=== PATIENT | male | born 1960 | race Caucasian/White ===

== ENCOUNTER 2020-03-29 12:37 | Outpatient (REF) | payer MEDICAID, SELFPAY | END 2020-03-29 12:38 | disposition home or self-care (01) | LOC: HO.LAB 12:37 | PROVIDERS: Visit Provider Internal Medicine | DX: Z20.828 Contact with and (suspected) exposure to other viral communicable diseases (principal) | CPT/HCPCS: C9803; U0003 ==

== ENCOUNTER → 2021-01-22 10:12 | Outpatient (BNVA) | payer MEDICAID, SELFPAY | PROVIDERS: PCP General Practice; Referring Provider General Practice; Visit Provider Nurse Practitioner Family | DX: K58.2 Mixed irritable bowel syndrome (principal); R19.7 Diarrhea, unspecified; K21.9 Gastro-esophageal reflux disease without esophagitis | CPT/HCPCS: 99202 ==

== ENCOUNTER → 2021-04-05 09:51 | Outpatient (BNVA) | payer MEDICAID, SELFPAY | PROVIDERS: PCP General Practice; Referring Provider General Practice; Visit Provider Nurse Practitioner Family | DX: Z12.11 Encounter for screening for malignant neoplasm of colon (principal); K58.2 Mixed irritable bowel syndrome; K21.9 Gastro-esophageal reflux disease without esophagitis; R19.7 Diarrhea, unspecified | CPT/HCPCS: 99212 ==

== ENCOUNTER → 2021-07-02 08:00 | Day surgery (SDC) | payer MEDICAID, SELFPAY ==
--- NOTE | 2021-04-29 11:51 | P.CONAN_ITS ---
HPI - Anesthesia Eval Consult details Narrative: 60yo M for Colonoscopy [facility] Past Medical History Medical History (Updated 01/22/21 @ 10:35 by DANY Ortiz) Depressive disorder Elevated cholesterol Overweight Smoker Stable angina Vitamin D deficiency Surgical History Surgical History (Updated 04/05/21 @ 10:10 by Zhane Ernandez) History of surgery of head History of surgery on right wrist Hx of hernia repair Social History Social History (Updated 04/05/21 @ 10:03 by Zhane Ernandez) Alcohol intake: never Patient Tobacco Use Status: Never used Tobacco Meds Allergies Allergy/AdvReac Type Severity Reaction Status Date / Time No Known Allergies Allergy Verified 04/05/21 09:56 Home Medications Medication Instructions Recorded Confirmed Last Taken Type atorvastatin 20 mg tablet 20 mg PO DAILY 01/22/21 Unknown History buspirone 10 mg tablet 10 mg PO BID 01/22/21 Unknown History cholecalciferol (vitamin D3) 50 50 mcg PO DAILY 01/22/21 Unknown History mcg (2,000 unit) capsule diclofenac sodium 1 % topical gel 2 g TOPICAL QID 01/22/21 Unknown History fluticasone propionate 50 1 spray INTRANASAL DAILY 01/22/21 Unknown History mcg/actuation nasal spray,suspension (Allergy Relief (fluticasone)) lidocaine 5 % topical patch 1 patch TOPICAL DAILY 01/22/21 Unknown History nabumetone 750 mg tablet 750 mg PO BID 01/22/21 Unknown History prazosin 1 mg capsule 1 mg PO BEDTIME 01/22/21 Unknown History propranolol 20 mg/5 mL (4 mg/mL) 20 mg PO BID 01/22/21 Unknown History oral solution salt moisturizing solution no1 spray INTRANASAL 01/22/21 Unknown History sertraline 25 mg tablet (Zoloft) 25 mg PO DAILY 01/22/21 Unknown History trazodone 100 mg tablet 100 mg PO BEDTIME PRN 01/22/21 Unknown History Exam Exam Date and Time: April 29, 2021 1151 Assessment and Plan Assessment Anesthesia Assessment: Chart Reviewed
--- NOTE | 2021-04-30 09:51 | PC.NURSE ---
Patient did not arrive for procedure. Called x3, no response or return call. Messages left
[2021-06-27 13:04] VITALS: BMI 32.4
== END ==
PROVIDERS: PCP General Practice; Visit Provider Internal Medicine Gastroenterology
DX: Z12.11 Encounter for screening for malignant neoplasm of colon (principal); Z53.8 Procedure and treatment not carried out for other reasons

== ENCOUNTER 2021-09-06 13:39 | Emergency (ER) | payer MEDICAID, SELFPAY ==
--- NOTE | ~2021-09-06 | XR_ITS ---
EXAMINATION: XR KNEE, LEFT CLINICAL INFORMATION: Pain COMPARISON: Previous x-ray July 2014 TECHNIQUE: Four views of the left knee. FINDINGS: Bones and soft tissues are normal. No fracture or joint effusion. Alignment is anatomic. Joint spaces are well maintained. No abnormal soft tissue calcification. XR/XR knee LT 3V IMPRESSION: Normal left knee.
[2021-09-06 13:43] VITALS: BP 116/75; PULSE 89; RESP 18; TEMP 36.6; O2SAT 98; BMI 31.9
--- NOTE | 2021-09-06 15:04 | ED_ITS ---
HPI - General Adult General Chief complaint: Back Pain/Injury Stated complaint: l knee and hip pain Time Seen by Provider: 09/06/21 14:54 Source: patient Mode of arrival: ambulatory Limitations: no limitations History of Present Illness HPI narrative: Patient is a 61 year old male presenting to the emergency department today with left lower back pain. Patient states that starting 3 days ago, he began to have left low back pain that radiates down his left leg. Patient states that he has been lifting weights more, including lifts. Patient denies any dizziness, lightheadedness, abdominal pain, nausea, vomiting, fever, chills, blurry vision, double vision, loss of vision, chest pain, difficulty breathing, shortness of breath, night sweats, pain with urination, increased urinary frequency, inc reased urinary urgency, blood in his urine or stool, syncope or a near syncopal episode, recent trauma or falls, bowel incontinence, bladder incontinence, bowel retention, bladder retention, or any other complaints at this time. Onset (ago): day(s) (3) Location: back Radiation: extremity (left leg) Severity: mild Severity scale (1-10): 3 Quality: dull Pain Consistency: constant Relieving factors: none Exacerbating factors: none Associated symptoms: denies other symptoms Treatments prior to arrival: none Related Data Home Medications Medication Instructions Recorded Confirmed atorvastatin 20 mg tablet 20 mg PO DAILY 01/22/21 buspirone 10 mg tablet 10 mg PO BID 01/22/21 cholecalciferol (vitamin D3) 50 50 mcg PO DAILY 01/22/21 mcg (2,000 unit) capsule diclofenac sodium 1 % topical gel 2 g TOPICAL QID 01/22/21 fluticasone propionate 50 1 spray INTRANASAL DAILY 01/22/21 mcg/actuation nasal spray,suspension (Allergy Relief (fluticasone)) lidocaine 5 % topical patch 1 patch TOPICAL DAILY 01/22/21 nabumetone 750 mg tablet 750 mg PO BID 01/22/21 prazosin 1 mg capsule 1 mg PO BEDTIME 01/22/21 propranolol 20 mg/5 mL (4 mg/mL) 20 mg PO BID 01/22/21 oral solution salt moisturizing solution no1 spray INTRANASAL 01/22/21 sertraline 25 mg tablet (Zoloft) 25 mg PO DAILY 01/22/21 trazodone 100 mg tablet 100 mg PO BEDTIME PRN 01/22/21 Previous Rx's Medication Instructions Recorded [id number] 1 cap PO QID #120 cap 04/05/21 24,000-76,000-120,000 unit capsule,delayed rel (Creon) methylcellulose (laxative) 500 mg 500 mg PO DAILY #30 tab 04/05/21 tablet (Citrucel) pantoprazole 40 mg tablet,delayed 40 mg PO DAILY #30 tab 04/05/21 release sennosides 8.6 mg tablet (Natural 8.6 mg PO BEDTIME #30 tab 04/05/21 Senna Laxative) polyethylene glycol 3350 17 238 g PO ONCE #238 g 05/27/21 gram/dose oral powder (Miralax) bisacodyl 5 mg tablet,delayed 10 mg PO ONCE 1 Days #2 tab 07/02/21 release (Dulcolax (bisacodyl)) cyclobenzaprine 10 mg tablet 10 mg PO TID PRN 7 Days #21 tab 09/06/21 Allergies Allergy/AdvReac Type Severity Reaction Status Date / Time No Known Allergies Allergy Verified 04/05/21 09:56 Review of Systems Constitutional: Constitutional: Reports no additional constitutional compl aints, Denies chills, Denies fever(s) and Denies night sweats Eyes: Eyes: Reports no additional eye complaints, Denies blurry vision, Denies change in vision, Denies diplopia, Denies eye discharge, Denies loss of vision and Denies eye pain ENT: Denies dizziness Cardiovascular: Cardiovascular: Reports no additional cardiovascular complaints, Denies chest pain, Denies lightheadedness, Denies Loss of Consciousness and Denies dyspnea Respiratory: Respiratory: Reports no additional respiratory complaints and Denies dyspnea Gastrointestinal: Gastrointestinal: Reports no additional gastrointestinal complaints, Denies abdominal pain, Denies melena, Denies hematochezia, Denies change in bowel habits and Denies change in stool character Genitourinary: Genitourinary: Reports no additional male genitourinary complaints, Denies hematuria, Denies oliguria, Denies difficulty urinating, Denies dysuria, Denies urinary frequency, Denies urinary hesitancy, Denies urinary incontinence and Denies urinary urgency Musculoskeletal: Musculoskeletal: Reports no additional musculoskeletal complaints, Denies numbness and Denies tingling Neurologic: Denies dizziness, Denies loss of vision, Denies numbness and Denies tingling Psychiatric: Psychiatric: Reports no additional psychiatric complaints Endocrine: Endocrine: Reports no additional endocrine complaints Hematologic/Lymphatic: Hematologic/Lymphatic: Reports no additional hematologic/lymphatic complaints Allergic/Immunologic: Allergic/Immunologic: Reports no additional allergic/immunologic complaints [facility] Past Medical History Attestation statement: The following information was validated with the patient. Source: old records reviewed Medical History Depressive disorder Elevated cholesterol Overweight Smoker Stable angina Vitamin D deficiency Surgical History History of surgery of head History of surgery on right wrist Hx of hernia repair Social History Social History Alcohol intake: never Patient Tobacco Use Status: Never used Tobacco Advance Directives: No Advance Directives Information Provided: No Physical Exam ED Vital Signs: Vital Signs - 24 hr 09/06/21 13:43 09/06/21 15:31 Temperature 98 F 98.3 F Pulse Rate 89 76 Respiratory Rate 18 16 Blood Pressure 116/75 115/68 Pulse Oximetry 98 96 BMI result Body Mass Index 31.9 Const General: cooperative, no acute distress, alert and awake Nutritional Appearance: well nourished Orientation/consciousness: patient oriented x3 Limitations: no limitations HENMT Head: Yes normal to inspection and Yes atraumatic Ears: hearing grossly normal bilaterally and external ears normal General nose exam: Normal external nose present, no nasal discharge noted and no epistaxis Face and sinus: Yes normal facial exam, No abrasion and No laceration Mouth: Normal oral and palatal mucosa present, no drooling and no muffled voice Eyes General: appearance normal, both eyes and all related structures Periorbital: periorbital findings normal Eyelids: Yes eyelids normal Conjunctivae: conjunctivae normal Pupils: Equal, round and reactive pupils present EOM: EOMs intact bilaterally Neck Neck: Yes normal visual inspection, Yes full ROM and Yes no lymphadenopathy Chest Chest palpation & inspection: normal inspection of the chest Resp Effort & Inspection: normal respiratory effort and able to speak in complete sentences Auscultation: clear to auscultation bilaterally Cardio Rate: regular rate Rhythm: regular rhythm GI Inspection: Yes normal to inspection General: Yes no CVA tenderness Back/Spine/Pelvis Back: no CVA tenderness Cervical Spine: normal cervical lordosis and cervical ROM normal Thoracic/Lumbar Spine: thoracic and lumbar spine normal to inspection and thoraco-lumbar ROM normal Pelvis: no pain with anterior-posterior compression Neuro General: patient oriented x3 and moves all extremities Cranial nerves: Yes Equal, round and reactive pupils present Cognition (Neuro): normal cognition Motor exam (neuro): 5/5 motor strength present throughout Sensory Exam: Normal double simultaneous stimulation for sensation Coordination: [id number] test normal Extrem General: Yes normal to inspection, Yes full ROM and Yes capillary refill normal Psych Appearance: grossly normal Mental Status: mental status grossly normal Affect: normal affect Attitude: cooperative Thought process: Normal thought process present Thought content: Normal thought content present Insight: Good insight present (Psych) Medical Decision Making MDM Narrative Medical decision making narrative: Patient is a 61 year old male presenting to the emergency department today with left low back pain. Patient's physical exam was unremarkable. I explained my physical exam findings to the patient. I answered all questions asked by the patient. Patient received IM Toradol and PO Flexeril which he stated helped his symptoms significantly. I stressed the importance of the patient taking his medication as prescribed. I stressed the importance of the patient following up with his primary care provider. I stressed the importance of the patient returning to the emergency department immediately if his symptoms were to worsen or if he were to develop any dizziness, shortness of breath, difficulty breathing, chest pain, blurry vision, loss of vision, nausea, vomiting, abdominal pain, fever, chills, back pain, or any other complaints. Patient verbalized agreement and understanding with this treatment plan and discharge. Differential Diagnosis Differential Diagnosis: sciatic nerve pain Medical Records Medical records reviewed: Yes I reviewed the patient's medical records. Discharge Plan Discharge Clinical Impression: Sciatica Patient Disposition: Home, Self-Care Instructions: Sciatica (ED), Lower Back Exercises (ED) Additional Instructions: Follow up with your primary care provider. Return to the emergency department immediately if your symptoms worsen or if you develop any dizziness, shortness of breath, difficulty breathing, chest pain, blurry vision, loss of vision, nausea, vomiting, abdominal pain, fever, chills, back pain, or any other complaints. Prescriptions: New cyclobenzaprine 10 mg tablet 10 mg PO TID PRN (Reason: muscle spasm) 7 Days Qty: 21 0RF No Action polyethylene glycol 3350 [Miralax] 17 gram/dose powder 238 g PO ONCE Qty: 238 0RF Rx Instructions: As directed by gastroenterology department at [facility] bisacodyl [Dulcolax (bisacodyl)] 5 mg tablet,delayed release (DR/EC) 10 mg PO ONCE 1 Days Qty: 2 0RF Rx Instructions: take 2 tabs at 8-9 pm night before colonoscopy cholecalciferol (vitamin D3) 50 mcg (2,000 unit) capsule 50 mcg PO DAILY 0RF salt moisturizing solution no1 Mist intranasal 0RF lidocaine 5 % adhesive patch,medicated 1 patch topical DAILY 0RF Rx Instructions: leave on most painful area for up to 12 hrs trazodone 100 mg tablet 100 mg PO BEDTIME PRN0RF buspirone 10 mg tablet 10 mg PO BID 0RF nabumetone 750 mg tablet 750 mg PO BID 0RF fluticasone propionate [Allergy Relief (fluticasone)] 50 mcg/actuation spray,suspension 1 spray intranasal DAILY 0RF Rx Instructions: administer into each nostril atorvastatin 20 mg tablet 20 mg PO DAILY 0RF diclofenac sodium 1 % gel 2 g topical QID 0RF Rx Instructions: apply to single elbow, wrist or hand; for hand includes palm/fingers/back of hand propranolol 20 mg/5 mL (4 mg/mL) solution 20 mg PO BID 0RF prazosin 1 mg capsule 1 mg PO BEDTIME 0RF sertraline [Zoloft] 25 mg tablet 25 mg PO DAILY 0RF sennosides [Natural Senna Laxative] 8.6 mg tablet 8.6 mg PO BEDTIME Qty: 30 2RF Citrucel 500 mg tablet 500 mg PO DAILY Qty: 30 2RF Rx Instructions: take it with full glass of water pantoprazole 40 mg tablet,delayed release (DR/EC) 40 mg PO DAILY Qty: 30 2RF Rx Instructions: take one tablet half an hour before breakfast Creon 24,000-76,000 -120,000 unit capsule,delayed release(DR/EC) 1 cap PO QID Qty: 120 2RF Rx Instructions: administer with meals and/or snacks Referrals: Catalina Tanner MD [Primary Care Provider] - Stand Alone Forms: Work/School Release Interventions: ED Discharge Assessment Last Done: 09/06/21 15:55 Discharge Date/Time: 09/06/21 15:58 Print Language: Yakut
[2021-09-06 15:31] VITALS: BP 115/68; PULSE 76; RESP 16; TEMP 36.8; O2SAT 96
[2021-09-06] MEDS: Cyclobenzaprine HCl 5 MG TABLET PO (15:49)
[2021-09-06] MEDS: Ketorolac Tromethamine 15 MG/ML VIAL IM (15:49)
== END 2021-09-06 15:58 | disposition home or self-care (01) ==
PROVIDERS: Emergency Provider Internal Medicine; PCP General Practice
DX: M54.42 Lumbago with sciatica, left side (principal); M25.562 Pain in left knee
CPT/HCPCS: 73562; 96372; 99283; 99284; J1885

== ENCOUNTER 2023-02-17 08:42 | Outpatient (REF) | payer MEDICAID, SELFPAY ==
--- NOTE | ~2023-02-17 | XR_ITS ---
EXAMINATION: XR KNEE, RIGHT XR KNEE, LEFT CLINICAL INFORMATION: Chronic bilateral knee pain worse on the left COMPARISON: None TECHNIQUE: Radiographs of Both Knee joints obtained in standing Lateral projection. FINDINGS: RIGHT KNEE: No fracture seen. There is no spaces narrowing . Alignment is anatomic. No joint effusion. No abnormal soft tissue calcifications. LEFT KNEE: No fracture seen. There is no spaces narrowing . Alignment is anatomic. No joint effusion. No abnormal soft tissue calcifications.. XR/XR knee RT 3V IMPRESSION: Normal knees bilaterally.
--- NOTE | ~2023-02-17 | XR_ITS ---
EXAMINATION: XR KNEE, RIGHT XR KNEE, LEFT CLINICAL INFORMATION: Chronic bilateral knee pain worse on the left COMPARISON: None TECHNIQUE: Radiographs of Both Knee joints obtained in standing Lateral projection. FINDINGS: RIGHT KNEE: No fracture seen. There is no spaces narrowing . Alignment is anatomic. No joint effusion. No abnormal soft tissue calcifications. LEFT KNEE: No fracture seen. There is no spaces narrowing . Alignment is anatomic. No joint effusion. No abnormal soft tissue calcifications.. XR/XR knee LT 3V IMPRESSION: Normal knees bilaterally.
[2023-02-17 11:23] LABS: MANUAL DIFF FLAG NO
[2023-02-17 11:32] LABS: Basophils Absolute Auto 0.1 X10*3/uL (0.0-0.2); Basophils Percent Auto 0.7 % (0-2); Eosinophils Absolute Auto 0.4 X10*3/uL (0.0-0.4); Eosinophils Percent Auto 3.8 % (0-4); Hematocrit 44.8 % (42.0-52.0); Hemoglobin 14.8 g/dl (14.0-18.0); Imm Gran Abs Auto 0.09 X10*3/uL (0.00-0.03); Imm Gran Pct Auto 0.9 % (0.0-0.4); Lymphocytes Percent Auto 20.2 % (20-40); Mean Corpuscular Hemoglobin 29.8 pg (27.0-33.0); Mean Corpuscular Volume 90.1 fL (80.0-98.0); Mean Platelet Volume 12.2 fL (9.4-12.4); Monocytes Absolute Auto 0.8 X10*3/uL (0.1-1.2); Neutrophils Absolute Auto 6.4 x10*3/uL (2.0-8.3); Neutrophils Percent Auto 66.4 % (45-73); Platelet Count 220 X10*3/uL (160-400); Red Blood Count 4.97 X10*6/uL (4.60-5.80); Red Cell Distribution Width 14.1 % (11.0-16.0); White Blood Count 9.7 X10*3/uL (4.8-10.8)
[2023-02-17 11:49] LABS: Alanine Aminotransferase 44 U/L (0-40); Albumin Level 4.2 g/dL (3.5-5.0); Alkaline Phosphatase 97 U/L (39-117); Anion Gap 13 (12-20); Aspartate Amino Transferase 28 U/L (5-37); Bilirubin Total 0.4 mg/dL (0.0-1.0); Blood Urea Nitrogen 13 mg/dL (9-16); Calcium 9.3 mg/dL (8.4-10.2); Carbon Dioxide 26 mmol/L (22-29); Chloride 104 mmol/L (96-108); Cholesterol 240 mg/dL (<200); Estimated Glomerular Filt Rate > 60; Glucose Random 140 mg/dL (60-115); HDL Cholesterol 38 mg/dL (>40); LDL Cholesterol Calculated 139 mg/dL (<100); Potassium 4.4 mmol/L (3.3-5.1); Sodium 139 mmol/L (135-145); Total Protein 7.4 g/dL (6.5-8.0); Triglycerides 316 mg/dL (<150)
[2023-02-17 12:13] LABS: TSH reflex Free T4 0.79 uIU/mL (0.32-4.0)
[2023-02-17 12:18] LABS: Folate 10.2 ng/mL (> or = 4.0); Vitamin B12 329 pg/mL (200-900)
[2023-02-17 12:24] LABS: Estimated Average Glucose 134 mg/dL; Hemoglobin A1c % 6.3 % (<6.0)
== END 2023-02-17 08:43 | disposition home or self-care (01) ==
LOC: HO.HHCL 08:42
PROVIDERS: Visit Provider General Practice
DX: M25.561 Pain in right knee (principal); M25.562 Pain in left knee; G89.29 Other chronic pain; E66.3 Overweight; R41.3 Other amnesia
CPT/HCPCS: 36415; 73562; 80053; 80061; 82607; 82746; 83036; 84443; 85025

== ENCOUNTER 2023-12-22 09:16 | Outpatient (REF) | payer MEDICAID, SELFPAY | END 2023-12-22 09:17 | disposition home or self-care (01) | LOC: HO.NEURO 09:16 | PROVIDERS: PCP General Practice; Visit Provider General Practice | DX: Z13.89 Encounter for screening for other disorder (principal) ==

== ENCOUNTER 2024-07-01 13:53 | Outpatient (REF) | payer MEDICAID, SELFPAY ==
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
--- OUTSIDE RECORDS SUMMARY | 2024-07-01 15:32 | XMS_ITS | Encounter Summary ---
Author Organization [employer] Address [address] [facility] [address] [place] [address] Care Team Providers Care Clipman Name Role Phone Catalina Tanner MD Primary Care Provider [phone] Reason for Visit * Reason Comments Pre-visit Planning SDOH will need to be completed in office. Encounter Details Date Type Department Care Team ([facility] st Contact Info) Description 06/24/2024 Patient Outreach [facility] [address] [place], [place] [phone] Catalina Tanner MD [address] [place] [address] Pre-visit Planning (SDOH will need to be completed in office. ) Social History Tobacco Use Types Packs/Day Years Used Date Smoking Tobacco: Former Cigarettes Smokeless Tobacco: Never Comments:1 cigarette per day Alcohol Use Standard [...] your housing situation today? I have roberto pedro 02/10/[address] you li [...] Orientation Straight 02/24/2022 10 :16 AM EDT documented as of this encounter Progress Notes * Nettie White - 06/24/2024 9:56 AM EST KEVIN Hernandez placed successful outbound call to patient for pre-visit planning. Patient name and confirmed. Patient confirms appt date and time, and has transportation arrangements. Biggest concern for appointment at this time is no concerns. Appropriate screenings completed in anticipation ofappointment. documented in this encounter Plan of Treatment Not on file documented as of this encounter Visit Diagnoses Not on filedocumented in this encounter Additional Health Concerns Assessment Noted Time PHQ-9 Depression Total Score: 8 06/01/19 24 9:00 AM EST documented as of this encounter Care Teams Clipman Relationship Specialty Start Date End Date Catalina Tanner MD [address] [place] [address] PCP - General Family Medicine 06/06/20 documented as of this encounter
--- OUTSIDE RECORDS SUMMARY | 2024-07-01 15:32 | XMS_ITS | Encounter Summary ---
Author Organization [employer] Address [address] [place] [address] Care Team Providers Care Belt Notcher Name Role Phone Catalina Tanner MD Primary Care Provider [phone] Reason for Visit * Reason Onset Date Comments Prior Authorization 03/18/2024 Encounter Details Date Type Department Care Team ([facility] Contact Info) Description 03/18/2024 Telephone [facility] MEDICINE [address] [place], [place] [phone] Catalina Tanner MD [address] [place], [place] [phone] Prior Authorization Social History Tobacco Use Types Packs/Day Years [...] AM EDT documented as of this encounter Miscellaneous Notes * Telephone Encounter - Savanna Bennett RN - 03/18/2024 10:39 AM EST RN returned call to pharmacy [phone] who reports a PA is needed for lexapro and sertraline dueto one medication being an SSRI and the other being an SNRI. Pharmacy reports the pt is due for medications on Thursday and pharmacy is closed on and Thursday d/t holiday. Pharmacy is requesting PA to be processed LYN. * Telephone Encounter - Sherri Rm - 03/18/2024 10:18 AM EST Tc from Pharmacy [facility] requesting a PA for medications Sertraline,Lexapro due to pharmacy being closed for upcoming holidays. documented in this encounter Plan of Treatment Not on file documented as of this encounter Visit Diagnoses Not on filedocumented in this encounter Additional Health Concerns Assessment Noted Time PHQ-9 Depression Total Score: 8 06/01/19 24 9:00 AM EST documented as of this encounter Care Teams Belt Notcher Relationship Specialty Start Date End Date Catalina Tanner MD [address] [place] [address] PCP - General Family Medicine 06/06/20 documented as of this encounter
--- OUTSIDE RECORDS SUMMARY | 2024-07-01 15:32 | XMS_ITS | Encounter Summary ---
Author Organization [employer] Address [address] [facility] [address]t [place] [address] Care Team Providers Care General Manager In Training Name Role Phone Catalina Tanner MD Primary Care Provider [phone] Encounter Details Date Type Department Care Team (Latest Contact Info) Description 07/01/2024 Travel Social History Tobacco Use Types Packs/Day Years [...] AM EDT documented as of this encounter Plan of Treatment Not on file documented as of this encounter Visit Diagnoses Not on filedocumented in this encounter Additional Health Concerns Assessment Noted Time PHQ-9 Depression Total Score: 8 06/01/19 24 9:00 AM EST documented as of this encounter Care Teams General Manager In Training Relationship Specialty Start Date End Date Catalina Tanner MD [address] [place] [address] PCP - General Family Medicine 06/06/20 documented as of this encounter
--- OUTSIDE RECORDS SUMMARY | 2024-07-01 15:32 | XMS_ITS | Encounter Summary ---
Author Organization [employer] Address [address] [facility] 7t [place] [address] Care Team Providers Care Instrument Repairer Steam Plant Name Role Phone Catalina Tanner MD Primary Care Provider [phone] Reason for Visit * Reason Comments Follow-up Encounter Details Date Type Department Care Team (Latest Contact Info) Description 07/01/2024 1:30 PM EST Office Visit [facility] MEDICINE 230 [place], [place] [phone] Catalina Tanner MD 230 [place], [place] [phone] Hypercholesterolemia (Primary Dx) Social History Tobacco Use Types Packs/Day Years [...] AM EDT documented as of this encounter Last Filed Vital Signs Vital Sign Reading [...] Mass Index 32.99 07/01/2024 1:20 PM EST documented in this encounter Plan of Treatment Scheduled Orders Name Type Priority Associated Diagnoses Orde r Schedule Comprehensive Metabolic Panel Lab Routine Hypercholesterolemia Expected: 07/01/2024 (Approximate), Expires: 07/01/2025 Lipid Panel, Standard Lab Routine Hypercholesterolemia Expected: 07/01/2024 (Approximate), Expires: 07/01/2025 Hepatitis C Antibody with Reflex to HCV, RNA, Quantitative, Real-Time PCR Lab Routine Hypercholesterolemia Expected: 07/01/2024, Expires: 07/01/2025 HIV-1/2 Antigen and Antibodies, Fourth Generation, with Reflexes Lab Routine Hypercholesterolemia Expected: 07/01/2024 (Approximate), Expires: 07/01/2025 CBC auto differential Lab Routine Hypercholesterolemia Expected: 07/01/2024 (Approximate), Expires: 07/01/2025 Hemoglobin A1c Lab Routine Hypercholesterolemia Expected: 07/01/2024 (Approximate), Expires: 07/01/2025 documented as of this encounter Visit Diagnoses Diagnosis Hypercholesterolemia- Primary Pure hypercholesterolemia documented in this encounter Additional Health Concerns Assessment Noted Time PHQ-9 Depression Total Score: 8 06/01/19 24 9:00 AM EST documented as of this encounter Care Teams Instrument Repairer Steam Plant Relationship Specialty Start Date End Date Catalina Tanner MD [address] [place] [address] PCP - General Family Medicine 06/06/20 documented as of this encounter
--- OUTSIDE RECORDS SUMMARY | 2024-07-01 15:32 | XMS_ITS | Encounter Summary ---
Author Organization [employer] Address [address] 7[address] [place] [address] Care Team Providers Care Tin Flopper Name Role Phone Catalina Tanner MD Primary Care Provider [phone] Reason for Visit * Reason Comments Med Refill Encounter Details Date Type Department Care Team ([facility] st Contact Info) Description 06/13/2024 Refill [facility] MEDICINE 230 [place] [address] Catalina Tanner MD 230 [place] [address] Social History Tobacco Use Types Packs/Day Years [...] documented as of this encounter Care Teams Tin Flopper Relationship Specialty Start Date End Date Catalina Tanner MD 230 [place] [address] PCP - General Family Medicine 06/06/20 documented as of this encounter
--- OUTSIDE RECORDS SUMMARY | 2024-07-01 15:32 | XMS_ITS | Encounter Summary ---
Author Organization [employer] Address [address] [place] [address] Care Team Providers Care Snow Groomer Name Role Phone Catalina Tanner MD Primary Care Provider [phone] Reason for Visit * Reason Comments Med Refill Encounter Details Date Type Department Care Team ([facility] st Contact Info) Description 06/08/2024 Refill [facility] MEDICINE 230 [place], [place] [phone] Catalina Tanner MD 230 [place] [address] PTSD (post-traumatic stress disorder) Social History Tobacco Use Types Packs/Day Years [...] as of this encounter Visit Diagnoses Diagnosis PTSD (post-traumatic stress disorder) Posttraumatic stress disorder documented in this encounter Additional Health Concerns Assessment Noted Time PHQ-9 Depression Total Score: 8 06/01/19 24 9:00 AM EST documented as of this encounter Care Teams Snow Groomer Relationship Specialty Start Date End Date Catalina Tanner MD 230 [place] [address] PCP - General Family Medicine 06/06/20 documented as of this encounter
--- OUTSIDE RECORDS SUMMARY | 2024-07-01 15:32 | XMS_ITS | Encounter Summary ---
Author Organization [employer] Address [address] 7[address] [place] [address] Care Team Providers Care Confidential Secretary Name Role Phone Catalina Tanner MD Primary Care Provider [phone] Encounter Details Date Type Department Care Team ([facility] Contact Info) Description 02/23/2023 Orders Only [facility] MEDICINE [address] [place] [address] Catalina Tanner MD [address] [place] [address] Social History Tobacco Use Types Packs/Day Years [...] Answer Date Recorded Patient Health Questionnaire-9 Score 13 11/20/2022 Housing Stability Answer Date Recorded What is your housing situation today? I have roberto pedro 02/17/[address] you li ve. Do you have problems with any of the following? None of the above 02/17/2023 Food Insecurity Answer Date Recorded Within the past 12 months, y ou worried that your food would run out before you got money to buy more: Never True 02/17/2023 Within the past 12 months,th e food you bought just didn't last and you didn't have enough money to get more: Never True Transportation Answer Date Recorded In the past 12 months, has l ack of transportation kept you from medical appts, meetings, work or from getting things needed for daily living? No 02/17/2023 Utilities Answer Date Recorded In the past 12 months, has t he electric, gas, oil or water company threatened to shut off services in your home? No 02/17/2023 Depression Answer Date Recorded Patient Health Questionnaire-2 Score 4 11/20/2022 Sex and Gender Information Value Date Recorded [...] Assessment Noted Time PHQ-9 Depression Total Score: 13 023 12:03 PM EDT documented as of this encounter Care Teams Confidential Secretary Relationship Specialty Start Date End Date Catalina Tanner MD [address] [place] [address] PCP - General Family Medicine 06/06/20 documented as of this encounter
--- OUTSIDE RECORDS SUMMARY | 2024-07-01 15:32 | XMS_ITS | Encounter Summary ---
Author Organization [employer] Address [address] 7[address] [place] [address] Care Team Providers Care Office Automation Clerk Name Role Phone Catalina Tanner MD Primary Care Provider [phone] Reason for Visit * Reason Comments Med Refill Encounter Details Date Type Department Care Team ([facility] st Contact Info) Description 05/12/2024 Refill [facility] MEDICINE 230 [place], [place] [phone] Catalina Tanner MD 230 [place] [address] PTSD (post-traumatic stress disorder) Social History Tobacco [...] documented as of this encounter Care Teams Office Automation Clerk Relationship Specialty Start Date End Date Catalina Tanner MD [address] [place] [address] PCP - General Family Medicine 06/06/20 documented as of this encounter
--- OUTSIDE RECORDS SUMMARY | 2024-07-01 15:32 | XMS_ITS | Encounter Summary ---
Author Organization [employer] Address [address] 7[address] [place] [address] Care Team Providers Care Commercial Horticulture Instructor Name Role Phone Catalina Tanner MD Primary Care Provider [phone] Reason for Visit * Reason Comments Med Refill Encounter Details Date Type Department Care Team ([facility] st Contact Info) Description 08/04/2023 Refill [facility] [address] [place] [address] Catalina Tanner MD 230 [place] [address] Social History Tobacco Use Types Packs/Day Years [...] Recorded Patient Health Questionnaire-2 Score 2 06/01/2023 Sex and Gender Information Value Date Recorded [...] documented as of this encounter Care Teams Commercial Horticulture Instructor Relationship Specialty Start Date End Date Catalina Tanner MD 230 [place] [address] PCP - General Family Medicine 06/06/20 documented as of this encounter
[2024-07-01 16:16] LABS: MANUAL DIFF FLAG NO
[2024-07-01 16:53] LABS: Alanine Aminotransferase 55 U/L (0-40); Albumin Level 4.3 g/dL (3.5-5.0); Alkaline Phosphatase 111 U/L (39-117); Anion Gap 10 (12-20); Aspartate Amino Transferase 35 U/L (5-37); Bilirubin Total 0.3 mg/dL (0.0-1.0); Blood Urea Nitrogen 15 mg/dL (9-16); Calcium 9.3 mg/dL (8.4-10.2); Carbon Dioxide 25 mmol/L (22-29); Chloride 110 mmol/L (96-108); Cholesterol 141 mg/dL (<200); Estimated Glomerular Filt Rate 55; Glucose Random 150 mg/dL (60-115); HDL Cholesterol 34 mg/dL (>40); LDL Cholesterol Calculated 50 mg/dL (<100); Potassium 3.8 mmol/L (3.3-5.1); Sodium 141 mmol/L (135-145); Total Protein 7.8 g/dL (6.5-8.0); Triglycerides 289 mg/dL (<150)
[2024-07-01 17:09] LABS: TSH reflex Free T4 0.64 uIU/mL (0.32-4.0)
[2024-07-01 17:14] LABS: Estimated Average Glucose 128 mg/dL; Hemoglobin A1c % 6.1 % (<6.0)
[2024-07-01 18:05] LABS: Basophils Absolute Auto 0.1 X10*3/uL (0.0-0.2); Basophils Percent Auto 0.7 % (0-2); Eosinophils Absolute Auto 0.4 X10*3/uL (0.0-0.4); Hematocrit 43.5 % (42.0-52.0); Hemoglobin 14.1 g/dl (14.0-18.0); Imm Gran Abs Auto 0.04 X10*3/uL (0.00-0.03); Imm Gran Pct Auto 0.5 % (0.0-0.4); Lymphocytes Percent Auto 23.7 % (20-40); Mean Corpuscular HGB Conc 32.4 g/dl (31.0-36.0); Mean Corpuscular Volume 92.6 fL (80.0-98.0); Monocytes Absolute Auto 0.5 X10*3/uL (0.1-1.2); Monocytes Percent Auto 6.4 % (2-11); Neutrophils Absolute Auto 5.3 x10*3/uL (2.0-8.3); Neutrophils Percent Auto 63.7 % (45-73); Platelet Count 290 X10*3/uL (160-400); Red Cell Distribution Width 14.3 % (11.0-16.0); White Blood Count 8.3 X10*3/uL (4.8-10.8)
[2024-07-02 08:39] LABS: HIV AB/AG Nonreactive (Nonreactive); HIV Num 1 0.06 S/CO (0.00-0.99); ~HepC Num1 0.16 S/CO (0.00-0.79); ~Hepatitis C Antibody Nonreactive (Nonreactive)
== END 2024-07-01 13:54 | disposition home or self-care (01) ==
LOC: HO.HHCL 13:53
PROVIDERS: Visit Provider General Practice
DX: E78.00 Pure hypercholesterolemia, unspecified (principal); E66.3 Overweight
CPT/HCPCS: 36415; 80053; 80061; 83036; 84443; 85025; 86803; 87389

== ENCOUNTER 2025-02-13 14:34 | Outpatient (REF) | payer MEDICARE, MEDICAID, SELFPAY ==
--- NOTE | ~2025-02-13 | XR_ITS ---
EXAMINATION: XR CHEST 2 VIEWS HISTORY: SOB, emphysema? COMPARISON: Comparison is made with the prior examination dated 09/09/2018. FINDINGS: PA and lateral views of the chest are submitted. The lungs are expanded and clear. There is no pleural effusion, pneumothorax, or pulmonary vascular congestion. The heart is normal in size. There is mild degenerative disc disease of the spine. XR/XR chest 2V IMPRESSION: No acute cardiopulmonary abnormality. Electronically signed by: James Crabtree MD 02/13/2025 02:56 PM EDT
--- OUTSIDE RECORDS SUMMARY | 2025-02-13 14:00 | XMS_ITS | Encounter Summary ---
Author Organization [employer] Address [address] [place] [address] 7t [place] [address] Care Team Providers Care Injection Moulding Machine Operator Name Role Phone Catalina Tanner MD Primary Care Provider [phone] Reason for Referral * Imaging (Routine) - Pending Review Specialty Diagnoses / Procedures Referred By Domi t Referred To Contact Cardiology Diagnoses SOB (shortness of breath) Procedures Transthoracic Echo (TTE) Complete Catalina Tanner MD 230 [place] [address] Phone: tel: fax: Referral ID Status Reason Start Date Expiration Date Visits Requested Visits Authorized [id number] Pending Review Perform Procedure 5 02/13/2026 1 1 Encounter Details Date Type Department Care Team ([facility] Contact Info) Description 02/13/2025 2:00 PM EDT Office Visit [facility] MEDICINE [address] [place] [address] Catalina Tanner MD [address] [place] [address] Stable angina (CMS/HCC) (Primary Dx); SOB (shortness of breath) Social History Tobacco Use Types Packs/Day Years [...] Date Recorded Patient Health Questionnaire-9 Score 8 02/13/2025 Patient Health Questionnaire-9 Score 8 02/13/2025 Last PHQ-9: Questionnaire Data Not on file 1 Housing Stability Answer Date Recorded What is your housing situation today? I have roberto pedro 02/13/[address] you li ve. Do you have problems with any of the following? None of the above 02/13/2025 Food Insecurity Answer Date Recorded Within the past 12 months, y ou worried that your food would run out before you got money to buy more: Never True 02/13/2025 Within the past 12 months,th e food you bought just didn't last and you didn't have enough money to get more: Never True Transportation Answer Date Recorded In the past 12 months, has l ack of transportation kept you from medical appts, meetings, work or from getting things needed for daily living? No 02/13/2025 Intimate Partner Violence Answer Date R ecorded Within the last year, have y ou been afraid of your partner or ex-partner? 2 02/13/2025 Within the last year, have y ou been humiliated or emotionally abused in other ways by your partner or ex-partner? 2 Within the last year, have y ou been kicked, hit, slapped, or otherwise physically hurt by your partner or ex-partner? 2 02/13/2025 Within the last year, have y ou been raped or forced to have any kind of sexual activity by your partner or ex-partner? 2 02/13/2025 Utilities Answer Date Recorded In the past 12 months, has t he electric, gas, oil or water company threatened to shut off services in your home? No 02/13/2025 Depression Answer Date Recorded Patient Health Questionnaire-2 Score 2 02/13/2025 Internet Access Answer Date Recorded Internet Access Q1 No 02/13/2025 Internet Access Q2 I do not want or need it 01/26 Sex and Gender Information Value Date Recorded Sex Assigned at Male 02/24/2022 10:16 AM EDT Legal Sex Male 10:16 AM EDT Gender Identity Male 02/24/2022 10:16 AM EDT Sexual Orientation Straight 02/24/2022 10 :16 AM EDT documented as of this encounter Last Filed Vital Signs Vital Sign Reading Time Taken Comments Blood Pressure 138/72 02/13/2025 1:44 PM EDT Pulse 70 02/13/2025 1:44 PM EDT Temperature 36.4 C (97.6 F) 02/13/2025 1:44 PM EDT Respiratory Rate 16 02/13/2025 1:44 PM EDT Oxygen Saturation 97% 02/13/2025 1:44 PM EDT Inhaled Oxygen Concentration - - Weight 98.4 kg (217 lb) 02/13/2025 1:44 PM EDT Height 172.7 cm (5' 8 ) 02/13/2025 1:44 PM EDT Body Mass Index 32.99 02/13/2025 1:44 PM EDT documented in this encounter Functional Status * Over the past 2 weeks, how often have you been bothered by any of the following problems? Question Answer Date of Assessment Author Patient Health Questionnaire -2 Score 2 02/13/2025 1:44 PM EDT Monique White MA * Little interest or pleasure in doing things Answer Date of Assessment Author Several days 02/13/2025 1:44 PM EDT Shawna White MA * Feeling down, depressed, or hopeless Answer Date of Assessment Author Several days 02/13/2025 1:44 PM EDT Shawna White MA * Trouble falling or staying asleep, or sleeping too much Answer Date of Assessment Author Several days 02/13/2025 1:44 PM EDT Shawna White MA * Feeling tired or having little energy Answer Date of Assessment Author Several days 02/13/2025 1:44 PM EDT Shawna White MA * Poor appetite or overeating Answer Date of Assessment Author Several days 02/13/2025 1:44 PM EDT Shawna White MA * Feeling bad about yourself - or that you are a failure or have let yourself or your family down Answer Date of Assessment Author Several days 02/13/2025 1:44 PM EDT Shawna White MA * Trouble concentrating on things, such as reading the newspaper or watching television Answer Date of Assessment Author Several days 02/13/2025 1:44 PM EDT Shawna White MA * Moving or speaking so slowly that other people could have noticed? Or the opposite - being so fidgety or restless that you have been moving around a lot more than usual. Answer Date of Assessment Author Several days 02/13/2025 1:44 PM EDT Shawna White MA * Thoughts that you would be better off or hurting yourself in some way Answer Date of Assessment Author Not at all 02/13/2025 1:44 PM FAITHT Shawna White MA * Patient Health Questionnaire-9 Score Answer Date of Assessment Author 8 02/13/2025 1:44 PM FAITHT Shawna White MA * How difficult have these problems made it for you to do your work, take care of things at home, or get along with other people? Answer Date of Assessment Author Somewhat difficult 02/13/2025 1:44 PM EDT Monique White MA * Over the last 2 weeks, how often have you been bothered by any of the following problems? Question Answer Date of Assessment Author Feeling nervous, anxious, or on edge 1 02/13/2025 1:45 PM EDT Monique White MA Not being able to stop or co ntrol worrying 1 02/13/2025 1:45 PM EDT Monique White MA Worrying too much about diff erent things 2 02/13/2025 1:45 PM EDT Monique White MA Trouble relaxing 2 02/13/2025 1:45 PM EDT Monique Ann MA Being so restless that it is hard to sit still 2 02/13/2025 1:45 PM EDT Monique White MA Becoming easily annoyed or irritable 3 02/13/2025 1:45 PM EDT Monique White MA Feeling afraid as if somethi ng awful might happen 3 02/13/2025 1:45 PM EDT Monique White MA JANENE-7 Total Score 14 02/13/2025 1:45 PM EDT Monique White MA documented as of this encounter Plan of Treatment Upcoming Encounters Date Type Department Care Team (Late st Contact Info) Description 05/12/2025 10:00 AM EST Office Visit [facility] [address] [place] [address] AddyEsther singer, OD 230 [place] [address] Scheduled Orders Name Type Priority Associated Diagnoses Order Schedule Transthoracic Echo (TTE) Complete Echocardiography Routine SOB (shortness of breath) Expected: 02/13/2025 (Approximate), Expires: 02/13/2027 documented as of this encounter Procedures Procedure Name Priority Date/Time Associated Diagnosis Comments XR CHEST 2 VIEWS Routine 02/13/2025 2:50 PM EDT SOB (shortness of breath) documented in this encounter Results * XR Chest 2 Views (02/13/2025 2:50 PM EDT) Anatomical Region Laterality Modality Chest Radiographic Camila ging 02/13/2025 2:50 PM EDT Narrative 02/13/2025 2:59 PM EDT [facility] [address] [place] [address] XRay Report Signed Patient: Francisco George MR# : [id number] : 1960 Acct:[id number] Age/Sex: 64 / M ADM Date: 02/13/25 Loc: .HHCX Attending Dr: Catalina Tanner MD Ordering Physician: Catalina Tanner Date of Service: 02/13/25 Procedure(s): XR chest 2V Accession Number(s): [id number] cc: Catalina Tanner Reason for Exam: SOB, ephysema? EXAMINATION: XR CHEST 2 VIEWS HISTORY: SOB, emphysema? COMPARISON: Comparison is made with the prior examination dated 09/09/2018. FINDINGS: PA and lateral views of the chest are submitted. The lungs are expanded and clear. There is no pleural effusion, pneumothorax, or pulmonary vascular congestion. The heart is normal in size. There is mild degenerative disc disease of the spine. XR/XR chest 2V IMPRESSION: No acute cardiopulmonary abnormality. Electronically signed by: James Crabtree MD 02/13/2025 02:56 PM EDT RP Dictated By: James Crabtree MD Signed By: <Electronically signed by James Crabtree MD in OV> 02/13/25 1456 DD/ 145 TD/TT: 02/13/251449 Film Critic: Procedure Note Donotuseinterpreter, Image - 02/13/[address] [address] XRay Report Signed Patient: Noelle George# : [id number] : 1960Acct:[id number] Age/Sex: 64 / MADM Date: 02/13/25 Loc: .HHCX Attending Dr: Catalina Tanner MD Ordering Physician: Catalina Tanner Date of Service: 02/13/25 Procedure(s): XR chest 2V Accession Number(s): [id number] cc: Catalina Tanner Reason for Exam: SOB, ephysema? EXAMINATION: XR CHEST 2 VIEWS HISTORY: SOB, emphysema? COMPARISON: Comparison is made with the prior examination dated 09/09/2018. FINDINGS: PA and lateral views of the chest are submitted. The lungs are expanded and clear. There is no pleural effusion, pneumothorax, or pulmonary vascular congestion. The heart is normal in size. There is mild degenerative disc disease of the spine. XR/XR chest 2V IMPRESSION: No acute cardiopulmonary abnormality. Electronically signed by: James Crabtree MD 02/13/2025 02:56 PM EDT RP Dictated By: James Crabtree MD Signed By: <Electronically signed by James Crabtree MD in OV> 02/13/25 1456 DD/ 1450 TD/TT: 02/13/251449 Film Critic: Catalina Tanner MD IMG XR PROCEDURES Edited Resul t - Final documented in this encounter Visit Diagnoses Diagnosis Stable angina (CMS/HCC)- Primary Other and unspecified angina pectoris SOB (shortness of breath) Shortness of breath documented in this encounter Additional Health Concerns Assessment Noted Time PHQ-9 Depression Total Score: 8 02/14/20 25 1:44 PM EDT documented as of this encounter Care Teams Injection Moulding Machine Operator Relationship Specialty Start Date End Date Catalina Tanner MD [address] [place] [address] PCP - General Family Medicine 06/06/20 documented as of this encounter
--- OUTSIDE RECORDS SUMMARY | 2025-02-13 18:23 | XMS_ITS | Encounter Summary ---
Author Organization [employer] Address [address] [facility] 7t [place] [address] Care Team Providers Care Housing Inspector Name Role Phone Catalina Tanner MD Primary Care Provider [phone] Encounter Details Date Type Department Care Team ([facility] st Contact Info) Description 09/28/2024 Orders Only [facility] MEDICINE [address] [place] [address] Catalina Tanner MD [address] [place] [address] PTSD (post-traumatic stress disorder) Social History Tobacco [...] Description 05/12/2025 10:00 AM EST Office Visit [facility] [address] [place] [address] Esther Daly, OD [address] [place] [address] documented as of this encounter Visit Diagnoses Diagnosis PTSD (post-traumatic stress disorder) Posttraumatic stress disorder documented in this encounter Additional Health Concerns Assessment Noted Time PHQ-9 Depression Total Score: 8 06/01/19 24 9:00 AM EST documented as of this encounter Care Teams Housing Inspector Relationship Specialty Start Date End Date Catalina Tanner MD [address] [place] [address] PCP - General Family Medicine 06/06/20 documented as of this encounter
--- OUTSIDE RECORDS SUMMARY | 2025-02-13 18:23 | XMS_ITS | Encounter Summary ---
Author Organization [employer] Address [address] [facility] 7t [place] [address] Care Team Providers Care Long Winder Tender Name Role Phone Catalina Tanner MD Primary Care Provider Reason for Visit * Reason Comments Med Refill Encounter Details Date Type Department Care Team ([facility] Contact Info) Description 06/13/2024 Refill [facility] MEDICINE [address] [place] [address] Catalina Tanner MD [address] [place] [address] Social History Tobacco Use Types Packs/Day Years [...] Description 05/12/2025 10:00 AM EST Office Visit [facility] [address] [place] [address] Esther Daly, OD [address] [place] [address] documented as of this encounter Visit Diagnoses Not on filedocumented in this encounter Additional Health Concerns Assessment Noted Time PHQ-9 Depression Total Score: 8 06/01/19 24 9:00 AM EST documented as of this encounter Care Teams Long Winder Tender Relationship Specialty Start Date End Date Catalina Tanner MD [address] [place] [address] PCP - General Family Medicine 06/06/20 documented as of this encounter
--- OUTSIDE RECORDS SUMMARY | 2025-02-13 18:23 | XMS_ITS | Encounter Summary ---
Author Organization [employer] Address [address] [facility] 7t [place] [address] Care Team Providers Care Supervising Law Enforcement Analyst Name Role Phone Catalina Tanner MD Primary Care Provider [phone] Reason for Visit * Reason Comments Med Refill Encounter Details Date Type Department Care Team ([facility] Contact Info) Description 05/12/2024 Refill [facility] MEDICINE [address] [place] [address] Catalina Tanner MD [address] [place] [address] PTSD (post-traumatic stress disorder) Social History Tobacco [...] Description 05/12/2025 10:00 AM EST Office Visit [facility] OPTOMETRY [address] [place], [place] [phone] Esther Daly OD [address] [place] [address] documented as of this encounter Visit Diagnoses Diagnosis PTSD (post-traumatic stress disorder) Posttraumatic stress disorder documented in this encounter Additional Health Concerns Assessment Noted Time PHQ-9 Depression Total Score: 8 06/01/19 24 9:00 AM EST documented as of this encounter Care Teams Supervising Law Enforcement Analyst Relationship Specialty Start Date End Date Catalina Tanner MD [address] [place], [place] [phone] PCP - General Family Medicine 06/06/20 documented as of this encounter
--- OUTSIDE RECORDS SUMMARY | 2025-02-13 18:23 | XMS_ITS | Encounter Summary ---
Author Organization [employer] Address [address] [facility] [address] [place] [address] Care Team Providers Care Operating Cost Clerk Name Role Phone Catalina Tanner MD Primary Care Provider [phone] Encounter Details Date Type Department Care Team ([facility] Contact Info) Description 02/23/2023 Orders Only [facility] MEDICINE [address] [place] [address] Catalina Tanner MD [address] [place] [address] Social History Tobacco Use Types Packs/Day Years [...] Description 05/12/2025 10:00 AM EST Office Visit [facility] OPTOMETRY [address] [place] [address] Addy, Esther, OD [address] [place] [address] documented as of this encounter Visit Diagnoses Not on filedocumented in this encounter Additional Health Concerns Assessment Noted Time PHQ-9 Depression Total Score: 13 023 12:03 PM EDT documented as of this encounter Care Teams Operating Cost Clerk Relationship Specialty Start Date End Date Catalina Tanner MD [address] [place] [address] PCP - General Family Medicine 06/06/20 documented as of this encounter
--- OUTSIDE RECORDS SUMMARY | 2025-02-13 18:23 | XMS_ITS | Encounter Summary ---
Author Organization [employer] Address [address] [facility] 7t [place] [address] Care Team Providers Care Take Out Waiter Name Role Phone Catalina Tanner MD Primary Care Provider [phone] Reason for Visit * Reason Comments Med Refill Encounter Details Date Type Department Care Team ([facility] Contact Info) Description 08/04/2023 Refill [facility] CHC MED & PEDS [address] [place] [address] Catalina Tanner MD [address] [place] [address] Social History Tobacco Use Types Packs/Day Years [...] Description 05/12/2025 10:00 AM EST Office Visit [facility] OPTOMETRY [address] [place] [address] Addy, Esther, OD [address] [place] [address] documented as of this encounter Visit Diagnoses Not on filedocumented in this encounter Additional Health Concerns Assessment Noted Time PHQ-9 Depression Total Score: 8 06/01/19 24 9:00 AM EST documented as of this encounter Care Teams Take Out Waiter Relationship Specialty Start Date End Date Catalina Tanner MD [address] [place] [address] PCP - General Family Medicine 06/06/20 documented as of this encounter
--- OUTSIDE RECORDS SUMMARY | 2025-02-13 18:23 | XMS_ITS | Encounter Summary ---
Author Organization [employer] Address [address] [facility] [address] [place] [address] Care Team Providers Care Sales Representative Business Courses Name Role Phone Catalina Tanner MD Primary Care Provider [phone] Reason for Visit * Reason Comments Med Refill Encounter Details Date Type Department Care Team ([facility] Contact Info) Description 11/01/2024 Refill [facility] CHC MED & PEDS [address] [place] [address] Catalina Tanner MD [address] [place] [address] PTSD (post-traumatic stress disorder) Social History Tobacco [...] Description 05/12/2025 10:00 AM EST Office Visit [facility] OPTOMETRY [address] [place], [place] [phone] Esther Daly, MARIELA [address] [place] [address] documented as of this encounter Visit Diagnoses Diagnosis PTSD (post-traumatic stress disorder) Posttraumatic stress disorder documented in this encounter Additional Health Concerns Assessment Noted Time PHQ-9 Depression Total Score: 8 06/01/19 24 9:00 AM EST documented as of this encounter Care Teams Sales Representative Business Courses Relationship Specialty Start Date End Date Catalina Tanner MD [address] [place], [place] [phone] PCP - General Family Medicine 06/06/20 documented as of this encounter
--- OUTSIDE RECORDS SUMMARY | 2025-02-13 18:23 | XMS_ITS | Encounter Summary ---
Author Organization [employer] Address [address] [facility] 7t [place] [address] Care Team Providers Care Front Desk Receptionist Name Role Phone Catalina Tanner MD Primary Care Provider [phone] Reason for Visit * Reason Onset Date Comments Chart Prep 02/10/2025 Encounter Details Date Type Department Care Team ([facility] Contact Info) Description 02/10/2025 Telephone [facility] MEDICINE [address] [place] [address] Catalina Tanner MD [address] [place] [address] Chart Prep Social History Tobacco Use Types Packs/Day Years [...] encounter Miscellaneous Notes * Telephone Encounter - Hina Reynolds [place] - 02/10/2025 1:12 PM EDT Chart Prep Labs: done Images: not applicable Referrals: not applicable Vaccines due: Covid, Flu, PCV20, Tdap, and RSV Screenings: not applicable Overdue care gaps: SBIRT, SDOH, PHQ-9, JANENE-7, and Disability screen documented in this encounter Plan of Treatment Upcoming Encounters Date Type Department Care Team (Late [facility] Contact Info) Description 05/12/2025 10:00 AM EST Office Visit [facility] OPTOMETRY [address] [place] [address] Esther Daly, OD [address] [place] [address] documented as of this encounter Visit Diagnoses Not on filedocumented in this encounter Additional Health Concerns Assessment Noted Time PHQ-9 Depression Total Score: 8 06/01/19 24 9:00 AM EST documented as of this encounter Care Teams Front Desk Receptionist Relationship Specialty Start Date End Date Catalina Tanner MD [address] [place] [address] PCP - General Family Medicine 06/06/20 documented as of this encounter
--- OUTSIDE RECORDS SUMMARY | 2025-02-13 18:23 | XMS_ITS | Encounter Summary ---
Author Organization [employer] Address [address] [facility] [address] [place] [address] Care Team Providers Care Machine Slat Basket Maker Name Role Phone Catalina Tanner MD Primary Care Provider [phone] Reason for Visit * Reason Comments Med Refill Encounter Details Date Type Department Care Team ([facility] Contact Info) Description 12/28/2024 Refill [facility] CHC MED & PEDS [address] [place] [address] Catalian Tanner MD [address] [place] [address] PTSD (post-traumatic stress disorder) Social History Tobacco [...] Description 05/12/2025 10:00 AM EST Office Visit [facility] OPTOMETRY [address] [place], [place] [phone] Esther Daly, MARIELA [address] [place] [address] documented as of this encounter Visit Diagnoses Diagnosis PTSD (post-traumatic stress disorder) Posttraumatic stress disorder documented in this encounter Additional Health Concerns Assessment Noted Time PHQ-9 Depression Total Score: 8 06/01/19 24 9:00 AM EST documented as of this encounter Care Teams Machine Slat Basket Maker Relationship Specialty Start Date End Date Catalina Tanner MD [address] [place], [place] [phone] PCP - General Family Medicine 06/06/20 documented as of this encounter
--- OUTSIDE RECORDS SUMMARY | 2025-02-13 18:23 | XMS_ITS | Encounter Summary ---
Author Organization [employer] Address [address] [facility] [address] [place] [address] Care Team Providers Care Group Teacher Name Role Phone Catalina Tanner MD Primary Care Provider [phone] Encounter Details Date Type Department Care Team (Latest Contact Info) Description 02/13/2025 Travel Social History Tobacco Use Types Packs/Day [...] AM EDT documented as of this encounter Functional Status * Over the [...] Assessment Author Several days 02/13/2025 1:44 PM FAITHT Shawna White [place] * Trouble falling or staying asleep, or sleeping too much Answer Date of Assessment Author Several days 02/13/2025 1:44 PM FAITHT Shawna White [place] * Feeling tired or having little energy Answer Date of Assessment Author Several days 02/13/2025 1:44 PM EDShawna Lainez [place] * Poor appetite or overeating Answer Date of Assessment Author Several days 02/13/2025 1:44 PM FAITHT Shawna White [place] * Feeling bad about [...] Assessment Author Several days 02/13/2025 1:44 PM Shawna Blue [place] * Thoughts that you would be better off or hurting yourself in some way Answer Date of Assessment Author Not at all 02/13/2025 1:44 PM Shawna Blue [place] * Patient Health Questionnaire-9 Score Answer Date of Assessment Author 8 02/13/2025 1:44 PM Shawna Blue [place] * How difficult have these problems made it for you to do your work, take care of things at home, or get along with other people? Answer Date of Assessment Author Somewhat difficult 02/13/2025 1:44 PM Monique Blue [place] * Over the last 2 weeks, how often have you been bothered by any of the following problems? Question Answer Date of Assessment Author Feeling nervous, anxious, or on edge 1 02/13/2025 1:45 PM Monique Blue [place] Not being able to stop or co ntrol worrying 1 02/13/2025 1:45 PM Moniuqe Blue [place] Worrying too much about diff erent things 2 02/13/2025 1:45 PM Monique Blue [place] Trouble relaxing 2 02/13/2025 1:45 PM [...] Description 05/12/2025 10:00 AM EST Office Visit [facility] OPTOMETRY [address] [place] [address] Esther Daly, OD [address] [place] [address] documented as of this encounter Visit Diagnoses Not on filedocumented in this encounter Additional Health Concerns Assessment Noted Time PHQ-9 Depression Total Score: 8 02/14/20 25 1:44 PM EDT documented as of this encounter Care Teams Group Teacher Relationship Specialty Start Date End Date Catalina Tanner MD [address] [place] [address] PCP - General Family Medicine 06/06/20 documented as of this encounter
--- OUTSIDE RECORDS SUMMARY | 2025-02-13 18:23 | XMS_ITS | Encounter Summary ---
Author Organization [employer] Address [address] [facility] [address] [place] [address] Care Team Providers Care Principal Web Developer Name Role Phone Catalina Tanner MD Primary Care Provider [phone] Reason for Visit * Reason Comments Med Refill Encounter Details Date Type Department Care Team ([facility] Contact Info) Description 07/08/2024 Refill [facility] CHC MED & PEDS [address] [place] [address] Catalina Tanner MD [address] [place] [address] Social History Tobacco Use Types Packs/Day Years [...] 10:00 AM EST Office Visit [facility] OPTOMETRY [address] [place] [address] Esther Daly, OD [address] [place] [address] documented as of this encounter Visit Diagnoses Not on filedocumented in this encounter Additional Health Concerns Assessment Noted Time PHQ-9 Depression Total Score: 8 06/01/19 24 9:00 AM EST documented as of this encounter Care Teams Principal Web Developer Relationship Specialty Start Date End Date Catalina Tanner MD [address] [place] [address] PCP - General Family Medicine 06/06/20 documented as of this encounter
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
--- OUTSIDE RECORDS SUMMARY | 2025-02-13 18:23 | XMS_ITS | Encounter Summary ---
Author Organization [employer] Address [address] [facility] [address] [place] [address] Care Team Providers Care Call Center Professional Name Role Phone Catalina Tanner MD Primary Care Provider [phone] Reason for Visit * Reason Onset Date Comments Prior Authorization 03/18/2024 Encounter Details Date Type Department Care Team ([facility] Contact Info) Description 03/18/2024 Telephone [facility] [address] [place] [address] Catalina Tanner MD [address] [place] [address] Prior Authorization Social History Tobacco Use Types [...] AM EST RN returned call to pharmacy [phone] who reports a PA is needed for lexapro and sertraline dueto one medication being an SSRI and the other being an SNRI. Pharmacy reports the pt is due for medications on Thursday and pharmacy is closed on and Thursday d/t holiday. Pharmacy is requesting PA to be processed LYN. * Telephone Encounter - Sherri Rm - 03/18/2024 10:18 AM EST Tc from Pharmacy [facility] requesting a PA for medications Sertraline,Lexapro due to pharmacy being closed for upcoming holidays. documented in this encounter Plan of Treatment Upcoming Encounters Date Type Department Care Team (Late st Contact Info) Description 05/12/2025 10:00 AM EST Office Visit [facility] [address] [place] [address] Esther Daly, OD [address] [place] [address] documented as of this encounter Visit Diagnoses Not on filedocumented in this encounter Additional Health Concerns Assessment Noted Time PHQ-9 Depression Total Score: 8 06/01/19 24 9:00 AM EST documented as of this encounter Care Teams Call Center Professional Relationship Specialty Start Date End Date Catalina Tanner MD [address] [place] [address] PCP - General Family Medicine 06/06/20 documented as of this encounter
== END 2025-02-13 14:35 | disposition home or self-care (01) ==
LOC: HO.HHCX 14:34
PROVIDERS: Visit Provider General Practice
DX: R06.02 Shortness of breath (principal)
CPT/HCPCS: 71046

== ENCOUNTER → 2025-02-13 14:35 | Outpatient (BNV) | payer MEDICARE, MEDICAID, SELFPAY | PROVIDERS: Visit Provider Radiology Diagnostic Radiology | DX: R06.02 Shortness of breath (principal) | CPT/HCPCS: 71046 ==

== ENCOUNTER → 2025-03-16 12:45 | Outpatient (REF) | payer OTHER, SELFPAY ==
--- NOTE | 2025-03-16 13:06 | CA_ITS ---
Transthoracic Echocardiogram Patient (Last, First, Middle): Francisco George, Gender: Male Date of : 1960 Age: 64 Procedure Date: 03/16/2025 Procedure Type: Transthoracic Echocardiogram Location: OP Height: 172.72 cm Weight: 97.07 kg BSA: 2.10 m2 Heart Rate: 64 bpm BP: 124 / 70 mmHg Feller Seam Operator: SB Referring MD: Catalina Tnaner MD Symptoms: SOB Study Quality: Fair ECG Rhythm: Sinus Conclusions: - The left ventricular systolic function is normal. The calculated ejection fraction is 65% by biplane method. - No obvious valvular pathology seen on this study. Findings Procedure Information The quality of the study was technically difficult. The study quality is limited by patients body habitus and lung artifact. Left Ventricle Normal left ventricular cavity size. There is normal left ventricular wall thickness. The left ventricular systolic function is normal. The calculated ejection fraction is 65% by biplane method. There is no evidence of regional wall motion abnormalities. Diastolic function is normal for age. Right Ventricle Normal right ventricular cavity size and systolic function. Atria Both atria are normal in size. Aortic Valve There is a normal trileaflet aortic valve. There is no aortic valve stenosis. There is no aortic valve regurgitation. Mitral Valve The mitral valve appears normal. There is no mitral valve regurgitation. There is no mitral valve stenosis. Pulmonic Valve The pulmonic valve is likely normal. Tricuspid Valve There is trace tricuspid valve regurgitation. There is no evidence of pulmonary hypertension. Great Vessels The asc aorta is normal in size. Venous The inferior vena cava is normal in size and collapses greater than 50% with inspiration. Pericardium/Pleural There is no evidence of pericardial effusion. Prior Study Comparison No prior study available for comparison. Recommendations, Care & Conclusions No obvious valvular pathology seen on this study. Measurements 2D Linear Measurements IVSd: 0.95 0.6-0.9/0.6-1.0 cm LVIDd: 4.92 3.9-5.3/4.2-5.9 cm LVIDd Index: 2.34 2.4-3.2/2.2-3.1 cm/m2 LVIDs: 2.63 2.0-3.6 cm LVPWd: 0.80 0.7-1.1 cm LA Diam: 3.30 2.7-3.8/3.0-4.0 cm LAIDs Index: 1.57 1.5-2.3 cm/m2 LV Mass: 184.20 67-162/88-224 g LV Mass Index: 87.71 43-95/49-115 g/m2 LVOT Diam: 2.00 3.0+(-)1.3 cm 2D Systolic Function EF 4C: 60.00 >55% EF 2C: 71.40 >55% EF BiP: 65.10 >55% Mitral Valve MV Pk E: 0.76 MV PK A: 0.78 MV Decel Time: 223.00 E/A: 1.00 E'Lateral: 6.74 E'Medial: 6.74 E/E' Med: 11.30 E/E' Lat: 11.30 PHT: 65.00 MVA PHT: 3.38 Decel [place]: 3.42 Aortic Valve AoV Pk Jorge: 1.19 AoV Pk Grad: 6.00 DESTINY: 3.17 LVOT LVOT Pk Jorge: 1.16 LVOT Mn Jorge: 0.76 LVOT VTI: 0.25 LVOT Pk Grad: 5.00 LVOT Mn Grad: 3.00 LVOT Diam: 2.00 LVOT Area: 3.14 Diastolic Function MV Pk E: 0.76 MV Pk A: 0.78 E/A: 1.00 E'Medial: 6.74 E/E' Med: 11.30 E' Laterial: 6.74 E/E' Lat: 11.30 Right Ventricle TAPSE (mm): 20.70 TVS' Jorge: 13.60 Tricuspid Valve TR Pk Jorge: 1.92 TR Pk Grad: 15.00 RA Press: 3.00 RVSP: 18.00 Great Vessels Aorta Sinus of Valsalva: 2.90 2.0-3.5 cm Ao Asc: 3.30 2.1-3.4 cm Pulmonary Veins Pulm Vein S/D 1.20 Pulmonary Valve PV Pk Jorge: 0.85 Peak PV Grad: 3.00 Updated in Other Vendor System with Status of Final Hi Waters MD electronically signed on 03/18/2025 10:31:23 AM with status of Final
== END ==
LOC: HO.CARD 12:45
PROVIDERS: PCP General Practice; Visit Provider General Practice
DX: R06.02 Shortness of breath (principal)
CPT/HCPCS: 93306

== ENCOUNTER → 2025-03-16 13:06 | Outpatient (BNV) | payer OTHER, SELFPAY | PROVIDERS: PCP General Practice; Visit Provider Internal Medicine | DX: R06.02 Shortness of breath (principal) | CPT/HCPCS: 93306 ==